=== PATIENT | female | born 1940 | race Asian ===

== ENCOUNTER 2016-05-04 06:52 | Day surgery (SDC) | payer OTHER ==
[~2016-05-04] VITALS: Ht 157.5 cm; Wt 63.6 kg
[~2016-05-04 06:52] MED LIST: BENZ-26 PO; LOSA25TA21 PO; PANT40TA25 PO; PRED10 PO
[2016-05-04] MEDS ORDERED: SODIUM CHLORIDE 0.9% 1,000 ML IV ONE ×2 (07:00→07:09)
[2016-05-04] MEDS ORDERED: FentaNYL CITRATE-PF 100 MCG/2 ML VIAL ONE (07:47)
[2016-05-04] MEDS ORDERED: MIDAZOLAM HCL 2 MG/2 ML VIAL ONE (07:47)
[2016-05-04] MEDS ORDERED: MethylPREDNISolone SOD SUCC 125 MG/2 ML VIAL IVP ONE (09:00)
[2016-05-04] MEDS ORDERED: MethylPREDNISolone SOD SUCC 125 MG/2 ML VIAL ONE (09:12)
[2016-05-04] MEDS ORDERED: LIDOCAINE HCL 2% 30 ML JELLY TP ONE (16:54)
[2016-05-04] MEDS ORDERED: BENZOCAINE 20% 50 MCG/SPRAY 57 GM TP ONE (16:54)
[2016-05-04] MEDS ORDERED: LIDOCAINE HCL 4% 50 ML SOLUTION TP ONE (16:54)
[2016-05-04] MEDS ORDERED: OXYGEN THERAPY IH SCH (20:00)
== END 2016-05-04 09:55 | disposition home or self-care (01) ==
LOC: SURGERY 06:52
PROVIDERS: ATTEND Internal Medicine Critical Care Medicine
DX: J38.4 Edema of larynx (principal); B37.0 Candidal stomatitis; J45.909 Unspecified asthma, uncomplicated; Z98.890 Other specified postprocedural states
CPT/HCPCS: 31623; 31624; 71010; 87015 ×2; 87070; 87101; 87205; 87220; 88108; 88312; J2250; J2930; J3010; J7030

== ENCOUNTER 2017-05-12 06:33 | Day surgery (SDC) | payer OTHER ==
[~2017-05-12] VITALS: Ht 154.9 cm; Wt 62.3 kg
[~2017-05-12 06:33] MED LIST changes: -BENZ-26 PO; +BENZ-51 PO
[2017-05-12] MEDS ORDERED: LIDOCAINE HCL 2% 30 ML JELLY TP ONE (06:34)
[2017-05-12] MEDS ORDERED: LIDOCAINE HCL 4% 50 ML SOLUTION TP ONE (06:34)
[2017-05-12] MEDS ORDERED: BENZOCAINE 20% 50 MCG/SPRAY 57 GM TP ONE (06:34)
[2017-05-12] MEDS ORDERED: SODIUM CHLORIDE 0.9% 1,000 ML IV ONE ×2 (06:50→07:00)
[2017-05-12] MEDS ORDERED: MIDAZOLAM HCL 2 MG/2 ML VIAL ONE (08:01)
[2017-05-12] MEDS ORDERED: FentaNYL CITRATE-PF 100 MCG/2 ML VIAL ONE (08:02)
[2017-05-12] MEDS ORDERED: MethylPREDNISolone SOD SUCC 125 MG/2 ML VIAL IVP ONE (08:30)
[2017-05-12] MEDS ORDERED: MethylPREDNISolone SOD SUCC 125 MG/2 ML VIAL ONE (09:07)
[2017-05-12] MEDS ORDERED: OXYGEN THERAPY IH SCH (20:00)
== END 2017-05-12 10:10 | disposition home or self-care (01) ==
LOC: SURGERY 06:33
PROVIDERS: ATTEND Internal Medicine Critical Care Medicine
DX: J38.4 Edema of larynx (principal); B37.0 Candidal stomatitis; I10 Essential (primary) hypertension; M19.90 Unspecified osteoarthritis, unspecified site; J45.909 Unspecified asthma, uncomplicated; Z98.890 Other specified postprocedural states; Z98.42 Cataract extraction status, left eye; Z98.41 Cataract extraction status, right eye; Z95.2 Presence of prosthetic heart valve; Z79.899 Other long term (current) drug therapy
CPT/HCPCS: 31623; 31624; 71045; 87015; 87070; 87077; 87185; 87205; 87220; 88108; 88312; J2250; J2930; J3010; J7030; 87184